=== PATIENT | female | born 2000 | race Two or more races ===

== ENCOUNTER 2024-06-07 17:07 | Emergency (ER) | payer OTHER ==
[~2024-06-07] VITALS: Ht 160 cm; Wt 47.2 kg
[2024-06-07] MEDS ORDERED: KETOROLAC TROMETHAMINE 30 MG VIAL IM STA (18:20)
[2024-06-07] MEDS ORDERED: LIDOCAINE HCL 1% 10ML VIAL IJ STA (18:21)
[2024-06-07] MEDS ORDERED: KETOROLAC TROMETHAMINE 30 MG VIAL ONE (19:04)
[2024-06-07] MEDS ORDERED: TRAMADOL HCL 50 MG TABLET PO STA (19:10)
== END 2024-06-07 19:35 | disposition home or self-care (01) ==
LOC: ER 17:10
DX: S69.82XA Other specified injuries of left wrist, hand and finger(s), initial encounter (principal); X58.XXXA Exposure to other specified factors, initial encounter; Y93.89 Activity, other specified; Y92.89 Other specified places as the place of occurrence of the external cause; Y99.8 Other external cause status; L98.9 Disorder of the skin and subcutaneous tissue, unspecified